=== PATIENT | female | born 1970 | race Caucasian/White ===

== ENCOUNTER 2019-01-06 12:07 | Emergency (ER) | payer OTHER ==
--- NOTE | 2019-01-06 12:14 | EDPHY ---
HPI/HX/ROS/PE/MDM - Data Points Imaging: Discussed imaging studies w/ product development actuary Radiologist, I viewed and interpreted images myself Narrative: CHIEF COMPLAINT: Unresponsiveness HPI: The patient is a 41 y/o female with a history of liver failure related to Hepatitis C arriving emergently via EMS for evaluation of a period of unconsciousness or decreased responsiveness at work. Per daughter at bedside, the patient texted her saying she was feeling "foggy" and at some point after this she stopped verbally responding to coworkers and they called EMS. It's unclear if she lost consciousness completely or not or how long this lasted. EMS found her sitting in a chair with her head slumped but awake. She has been altered, but able to follow some commands and her mental status seemed to improve throughout their contact. She denies any pain and EMS did not note any signs of trauma on scene. Her daughter reports a similar less severe episode happened several months ago and it's thought her episodes of "fogginess" are related to her liver disease. She does take lactulose, hydrochlorothiazide, and tramadol, but it's unknown if she is compliant with these medications. REVIEW OF SYSTEMS: A comprehensive 10 system review of systems is otherwise negative aside from elements mentioned in the history of present illness. 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 Daughter at bedside. PHYSICAL EXAM: General:Patient is somnolent, follows commands, in no acute distress. BP 200/ 106. ENT: Pupils 2-3mm reactive. Eyes are normal to inspection. ENT inspection normal. Neck: Normal inspection. Full range of motion. Respiratory:No respiratory distress. Breath sounds normal bilaterally. Cardiovascular: Regular rate and rhythm. Strong peripheral pulses. Normal cap refill. Abdomen:The abdomen is nontender to palpation. There are no peritoneal signs. Back: Normal to inspection. No tenderness to palpation. Skin: Normal color. No rash. Warm and dry. Extremities: Normal appearance. Full range of motion. Neuro: Oriented x2. Normal motor function. Normal sensory function. (Shayne Hernandez) ED Course: 1206: Met EMS upon arrival and took report. This is a 48 y/o female with liver failure who presents somnolent following an episode of decreased responsiveness at work. She is able to follow some commands here, but majority of history comes from patient's daughter. Patient's pupils are 2-3mm and reactive and she is hypertensive. Presentation concerning for hepatic encephalopathy Plan for IV , labs, EKG, UA, head CT. The 12 lead EKG was interpreted by myself. See hard copy and/or "tracemaster" electronic copy for interpretation. Head CT: non-acute white matter disease that will require MRI follow up at some point. POC Troponin: 0.01. 1340: Reassessed patient. She is now completely awake and alert. She has a normal neurologic exam. She reports she is taking her lactulose regularly and reports these symptoms feel similar to her prior episode a few months ago. Ammonia is normal. Consulted with Dr. Venegas, radiology, regarding further neuro imaging. She recommends brain MRI with and without IV contrast. (Shayne Hernandez) 5:07 p.m.- The patient has been stable over the last several hours since 3:00 p.m. When I accepted sign-out. She has been waiting for her MRI and now is feeling quite frustrated and would like to return home. She says she feels fine and denies any complaints of fatigue, dizziness, weakness. She has an appointment tomorrow morning at [facility] with her oracle programmer analyst and would like to follow-up tomorrow. I explained that she does need to have an MRI of her brain performed. She is willing to do this as an outpatient and will discuss with her oracle programmer analyst tomorrow. If her oracle programmer analyst is unable to order MRI then her primary care doctor can. I discussed return precautions with her which include any worsening of her symptoms whatsoever given that there is some diagnostic uncertainty because of her abnormal head CT scan. Also, patient had a urinalysis performed which is indeterminate for urinary tract infection. She does not have any irritative voiding symptoms, thus I will not treat currently. I have sent a urine culture and would treat based on this. (Maki Peters) - Data Points Imaging Results: Imaging Impressions Head CT 01/06/19 12:16 Impression: 1. Nothing acute. 2. Central periventricular white matter disease, right worse than left. Demyelinating process is not excluded. MRI of the brain is suggested for further workup if clinically indicated, on an elective basis. Findings and recommendations discussed with Dr. Shayne Hernandez at 1230 hours on January 06, 2019. Final report concurs with initial preliminary interpretation. Laboratory Results: Laboratory Results 01/06/19 12:15 01/06/19 12:15 01/06/19 01/06/19 01/06/19 14:50 14:16 12:24 WBC RBC Hgb POC Hgb 17.0 gm/dL H gm/dL (12.6-16.3) Hct POC Hct 50 % H % (38-47) MCV MCH MCHC RDW Plt Count MPV Neut % (Auto) Lymph % (Auto) Dougherty % (Auto) Eos % (Auto) Baso % (Auto) Nucleat RBC Rel Count Absolute Neuts (auto) Absolute Lymphs (auto) Absolute Monos (auto) Absolute Eos (auto) Absolute Basos (auto) Absolute Nucleated RBC Immature Gran % Immature Gran # PT INR POC Sodium 142 mEq/L mEq/L (135-145) Sodium POC Potassium 3.6 mEq/L mEq/L (3.3-5.0) Potassium POC Chloride 105 mEq/L mEq/L (97-110) Chloride Carbon Dioxide POC Total CO2 22 mEq/L mEq/L (22-31) Anion Gap POC BUN 11 mg/dL mg/dL (7-23) BUN Creatinine POC Creatinine 0.7 mg/dL mg/dL (0.6-1.0) Estimated GFR Glucose POC Glucose 102 mg/dL H mg/dL (70-100) Calcium Total Bilirubin Conjugated Bilirubin Unconjugated Bilirubin AST ALT Alkaline Phosphatase Ammonia < 9.0 uMOL/L L uMOL/L (9.0-30.0) POC Troponin I Total Protein Albumin Urine Color YELLOW Urine Appearance HAZY Urine pH 5.0 (5.0-7.5) Ur Specific [place] 1.014 (1.002-1.030) Urine Protein NEGATIVE (NEGATIVE) Urine Ketones TRACE H (NEGATIVE) Urine Blood 1+ H (NEGATIVE) Urine Nitrate NEGATIVE (NEGATIVE) Urine Bilirubin NEGATIVE (NEGATIVE) Urine Urobilinogen NEGATIVE EU EU (0.2-1.0) Ur Leukocyte Esterase 1+ H (NEGATIVE) Urine RBC 5-10 /hpf H /hpf (0-3) Urine WBC 10-15 /hpf H /hpf (0-3) Ur Epithelial Cells 1+ /lpf /lpf (NONE-1+) Urine Bacteria TRACE /hpf H /hpf (NONE SEEN) Urine Mucus TRACE /lpf /lpf (NONE-1+) Urine Glucose NEGATIVE (NEGATIVE) 01/06/19 01/06/19 01/06/19 12:22 12:15 12:15 WBC RBC Hgb POC Hgb Hct POC Hct MCV MCH MCHC RDW Plt Count MPV Neut % (Auto) Lymph % (Auto) Dougherty % (Auto) Eos % (Auto) Baso % (Auto) Nucleat RBC Rel Count Absolute Neuts (auto) Absolute Lymphs (auto) Absolute Monos (auto) Absolute Eos (auto) Absolute Basos (auto) Absolute Nucleated RBC Immature Gran % Immature Gran # PT 13.8 SEC SEC (12.0-15.0) INR 1.04 (0.83-1.16) POC Sodium Sodium 138 mEq/L mEq/L (135-145) POC Potassium Potassium 4.1 mEq/L mEq/L (3.5-5.2) POC Chloride Chloride 107 mEq/L mEq/L (97-110) Carbon Dioxide 21 mEq/l L mEq/l (22-31) POC Total CO2 Anion Gap 10 mEq/L mEq/L (6-14) POC BUN BUN 13 mg/dL mg/dL (7-23) Creatinine 0.8 mg/dL mg/dL (0.6-1.0) POC Creatinine Estimated GFR > 60 Glucose 98 mg/dL mg/dL (70-100) POC Glucose Calcium 9.5 mg/dL mg/dL (8.5-10.4) Total Bilirubin 0.6 mg/dL mg/dL (0.1-1.4) Conjugated Bilirubin 0.4 mg/dL mg/dL (0.0-0.5) Unconjugated Bilirubin 0.2 mg/dL mg/dL (0.0-1.1) AST 33 IU/L IU/L (14-46) ALT 46 IU/L IU/L (9-52) Alkaline Phosphatase 67 IU/L IU/L (38-126) Ammonia POC Troponin I 0.01 ng/mL ng/mL (0.00-0.08) Total Protein 7.1 g/dL g/dL (6.3-8.2) Albumin 4.1 g/dL g/dL (3.5-5.0) Urine Color Urine Appearance Urine pH Ur Specific [place] Urine Protein Urine Ketones Urine Blood Urine Nitrate Urine Bilirubin Urine Urobilinogen Ur Leukocyte Esterase Urine RBC Urine WBC Ur Epithelial Cells Urine Bacteria Urine Mucus Urine Glucose 01/06/19 12:15 WBC 8.45 10^3/uL 10^3/uL (3.80-9.50) RBC 5.33 10^6/uL 10^6/uL (4.18-5.33) Hgb 15.7 g/dL g/dL (12.6-16.3) POC Hgb Hct 47.9 % H % (38.0-47.0) POC Hct MCV 89.9 fL fL (81.5-99.8) MCH 29.5 pg pg (27.9-34.1) MCHC 32.8 g/dL g/dL (32.4-36.7) RDW 13.4 % % (11.5-15.2) Plt Count 428 10^3/uL H 10^3/uL (150-400) MPV 9.6 fL fL (8.7-11.7) Neut % (Auto) 65.7 % % (39.3-74.2) Lymph % (Auto) 25.4 % % (15.0-45.0) Dougherty % (Auto) 7.2 % % (4.5-13.0) Eos % (Auto) 1.1 % % (0.6-7.6) Baso % (Auto) 0.2 % L % (0.3-1.7) Nucleat RBC Rel Count 0.0 % % (0.0-0.2) Absolute Neuts (auto) 5.55 10^3/uL 10^3/uL (1.70-6.50) Absolute Lymphs (auto) 2.15 10^3/uL 10^3/uL (1.00-3.00) Absolute Monos (auto) 0.61 10^3/uL 10^3/uL (0.30-0.80) Absolute Eos (auto) 0.09 10^3/uL 10^3/uL (0.03-0.40) Absolute Basos (auto) 0.02 10^3/uL 10^3/uL (0.02-0.10) Absolute Nucleated RBC 0.00 10^3/uL 10^3/uL (0-0.01) Immature Gran % 0.4 % % (0.0-1.1) Immature Gran # 0.03 10^3/uL 10^3/uL (0.00-0.10) PT INR POC Sodium Sodium POC Potassium Potassium POC Chloride Chloride Carbon Dioxide POC Total CO2 Anion Gap POC BUN BUN Creatinine POC Creatinine Estimated GFR Glucose POC Glucose Calcium Total Bilirubin Conjugated Bilirubin Unconjugated Bilirubin AST ALT Alkaline Phosphatase Ammonia POC Troponin I Total Protein Albumin Urine Color Urine Appearance Urine pH Ur Specific [place] Urine Protein Urine Ketones Urine Blood Urine Nitrate Urine Bilirubin Urine Urobilinogen Ur Leukocyte Esterase Urine RBC Urine WBC Ur Epithelial Cells Urine Bacteria Urine Mucus Urine Glucose Medications Given: Discontinued Medications Sodium Chloride (Ns) 1,000 mls @ 0 mls/hr IV EDNOW ONE; Wide Open PRN Reason: Protocol Stop: 01/06/19 13:41 Last Admin: 01/06/19 14:16 Dose: 1,000 mls Point of Care Test Results: Chemistry 01/06/19 01/06/19 12:24 12:22 POC Sodium 142 mEq/L mEq/L (135-145) POC Potassium 3.6 mEq/L mEq/L (3.3-5.0) POC Chloride 105 mEq/L mEq/L (97-110) POC Total CO2 22 mEq/L mEq/L (22-31) POC BUN 11 mg/dL mg/dL (7-23) POC Creatinine 0.7 mg/dL mg/dL (0.6-1.0) POC Glucose 102 mg/dL H mg/dL (70-100) POC Troponin I 0.01 ng/mL ng/mL (0.00-0.08) ISTAT H&H 01/06/19 12:24 POC Hgb 17.0 gm/dL H gm/dL (12.6-16.3) POC Hct 50 % H % (38-47) General Initial Vital Signs: Initial Vital Signs Temperature (C) 36.4 C 01/06/19 12:18 Heart Rate 73 01/06/19 12:18 Respiratory Rate 22 H 01/06/19 12:18 Blood Pressure 200/106 H 01/06/19 12:18 O2 Sat (%) 92 01/06/19 12:18 O2 Delivery Mode Room Air Allergies/Adverse Reactions: No Known Allergies Allergy (Unverified 01/06/19 12:17) Home Medications: Medication Instructions Recorded Hydrochlorothiazide 01/06/19 LACTULOSE 01/06/19 Departure - Departure Disposition: Home, Routine, Self-Care Clinical Impression: Altered mental state Qualifiers: Altered mental status type: unspecified Qualified Code(s): R41.82 - Altered mental status, unspecified Condition: Good Instructions: Altered Mental Status (ED) Additional Instructions: You will need an MRI of your brain. This can be ordered by your primary care doctor. I am unsure if your liver specialist is able to order it. The MRI is needed because of abnormality found on your CT scan. You should return to the emergency department if your worse in any way. Referrals: PAT ALEJANDRA [Primary Care Provider] - As per Instructions Stand Alone Forms: Work Excuse Report Scribed for: Shayne Hernandez Report Scribed by: Trista Dennis Date of Report: 01/06/19 Time of Report: 12:14 Physician Review and Approval Statement: Portions of this note were transcribed by an ED scribe. I personally performed the history, physical exam, and medical decision making; and confirm the accuracy of the information in the transcribed note.
[2019-01-06 12:35] LABS: PLATELET COUNT 428 10^3/uL (150-400)
[2019-01-06 12:43] LABS: INR 1.04 (0.83-1.16); PROTIME(PATIENT) 13.8 SEC (12.0-15.0)
[2019-01-06] MEDS ORDERED: NS 1,000 ML IV ONE (13:40)
[2019-01-06 17:15] VITALS: BP 172/84
== END 2019-01-06 17:13 | disposition home or self-care (01) ==
LOC: EDUNIT#
DX: R41.82 Altered mental status, unspecified (principal); K72.90 Hepatic failure, unspecified without coma; B19.20 Unspecified viral hepatitis C without hepatic coma
CPT/HCPCS: 82435-PO; 82565-PO; 82947-PO; 84132-PO; 84295-PO; 84484-ER; 84520-PO; 85014-ER